=== PATIENT | female | born 1970 | race Two or more races ===

== ENCOUNTER 2025-04-21 12:25 | Day surgery (SDC) | payer BC, SELFPAY ==
[2025-04-21] VITALS (9 sets, daily range): BP systolic 113–142; BP diastolic 78–91; PULSE 59–73; RESP 16–19; TEMP 36.2–36.3; O2SAT 92–98; BMI 27.0
[2025-04-21] MEDS: RINGERS LACTATED 500 ML 500 ML 125 ML IV (13:45)
[2025-04-21] MEDS: fentaNYL CIT INJ 50 mCg/ML AMP 2ML (ASD USE ONLY) IVP (13:53)
[2025-04-21] MEDS: MIDAZOLAM INJ 1 MG/ML VIAL 2 ML (ASD USE ONLY) 2 MG IVP (13:53)
== END 2025-04-21 14:48 | disposition home or self-care (01) ==
PROVIDERS: PCP Family Medicine; Referring Provider Surgery; Visit Provider Surgery
PROC: 0DBE8ZX Excision of Large Intestine, Via Natural or Artificial Opening Endoscopic, Diagnostic (ICD-10-PCS; CPT 45380; principal; 2025-04-21 13:00)
DX: Z12.11 Encounter for screening for malignant neoplasm of colon (principal)
CPT/HCPCS: 45378; 81025; A4649; J2250; J3010; J7120